=== PATIENT | male | born 1970 | race Two or more races ===

== ENCOUNTER 2019-09-09 16:32 | Emergency (ER) | payer MEDICAID ==
[~2019-09-09] VITALS: Ht 180.3 cm; Wt 70.5 kg
[2019-09-09 16:33] VITALS: BP 118/74
== END 2019-09-09 17:23 | disposition home or self-care (01) ==
LOC: ER 16:32
DX: R50.9 Fever, unspecified (principal); F17.200 Nicotine dependence, unspecified, uncomplicated
CPT/HCPCS: 99281